=== PATIENT | female | born 1960 | race Caucasian/White ===

== ENCOUNTER 2022-05-26 18:24 | Inpatient (IN) | payer OTHER ==
[~2022-05-26 18:24] MED LIST: Iopamidol-370 76% 500 ML 1 ML ONE
[2022-05-26 20:11] LABS: #Basophils 0.1 thou/uL (0.0-0.2); #Lymphocytes 1.4 thou/uL (1.20-3.40); #Monocytes 0.5 thou/uL (0.11-0.59); #Neutrophils 2.8 thou/uL (1.40-6.50); %Basophils 1.3 % (0.0-1.0); %Eosinophils 0.5 % (0.0-10.0); %Lymphocytes 29.9 % (21.0-51.0); %Neutrophils 58.4 % (42.0-75.0); Hemoglobin 11.4 g/dL (12.0-16.0); INR-International Normal Ratio 2.5; Mean Corpuscular HGB CONC 33.2 g/dL (32.0-36.0); Mean Corpuscular Hemoglobin 35.8 pg (27.0-31.0); Platelet Count 64 10x3/uL (130-400); Prothrombin Time 28.1 sec (12.0-14.7); Red Blood Cell (RBC) Count 3.19 mill/uL (4.20-5.40); White Blood Cell (WBC) Count 4.8 10x3/uL (4.8-10.8)
[2022-05-26 20:17] LABS: ALT (SGPT) 23 U/L (8-55); AST (SGOT) 71 U/L (5-34); Albumin 2.1 g/dL (3.4-4.8); Alkaline Phosphatase 97 U/L (40-110); Anion Gap 12 mmol/L (10-20); BUN (Urea Nitrogen) 7 mg/dL (9.8-20.1); Bilirubin, Total 15.9 mg/dL (0.2-1.2); Calc. Creatinine Clearance 0 mL/min (70-130); Calcium 8.2 mg/dL (7.8-10.44); Carbon Dioxide 19 mmol/L (23-31); Chloride 103 mmol/L (98-107); Estimated GFR 98; Globulin 3.5 g/dL (2.4-3.5); Glucose 121 mg/dL (80-115); Lipase 97 U/L (8-78); Potassium 3.9 mmol/L (3.5-5.1); Protein, Total 5.6 g/dL (5.8-8.1); Sodium 130 mmol/L (136-145)
[2022-05-27 02:17] LABS: Bilirubin 1+ (Negative); Blood, Urine Negative (Negative); Clarity Clear (Clear); Glucose, Urine (Dipstick) Normal (Negative); Ketone, Urine Negative (Negative); Leukocyte Negative Leu/uL (Negative); Nitrite Negative (Negative); Protein, Urine (Dipstick) Negative (Neg-Trace); Specific Gravity, Urine 1.027 (1.002-1.036); Urobilinogen Normal mg/dL (Less than 2)
[2022-05-27] MEDS ORDERED: Morphine 2 MG/ML VIAL ONE (03:42)
[2022-05-27 04:52] LABS: SARS-CoV-2 NAA Rapid Test Not Detected (NotDetected)
[2022-05-27] MEDS ORDERED: Ondansetron PF 4 MG/2 ML Vial IVP PRN (05:12)
[2022-05-27] MEDS ORDERED: Ondansetron ODT 4 MG TAB PO PRN (05:12)
[2022-05-27] MEDS ORDERED: Phytonadione 10 MG/ML AMP ONE (05:17)
[2022-05-27] MEDS ORDERED: Phytonadione 10 MG/ML AMP IM SCH (05:30)
[2022-05-27 05:37] LABS: #Lymphocytes 1.6 thou/uL (1.20-3.40); #Monocytes 0.5 thou/uL (0.11-0.59); #Neutrophils 2.8 thou/uL (1.40-6.50); %Basophils 0.7 % (0.0-1.0); %Eosinophils 0.3 % (0.0-10.0); %Lymphocytes 33.1 % (21.0-51.0); %Monocytes 9.9 % (0.0-10.0); %Neutrophils 56.1 % (42.0-75.0); Hemoglobin 10.5 g/dL (12.0-16.0); Mean Corpuscular HGB CONC 33.2 g/dL (32.0-36.0); Mean Corpuscular Hemoglobin 35.9 pg (27.0-31.0); Mean Platelet Volume 7.9 fL (7.4-10.4); Platelet Count 51 10x3/uL (130-400); RBC Distribution Width 15.1 % (11.5-14.5); Red Blood Cell (RBC) Count 2.93 mill/uL (4.20-5.40); White Blood Cell (WBC) Count 4.9 10x3/uL (4.8-10.8)
[2022-05-27 05:56] LABS: Anion Gap 7 mmol/L (10-20); BUN (Urea Nitrogen) 7 mg/dL (9.8-20.1); Calc. Creatinine Clearance 0 mL/min (70-130); Calcium 7.9 mg/dL (7.8-10.44); Carbon Dioxide 23 mmol/L (23-31); Chloride 103 mmol/L (98-107); Estimated GFR 99; Glucose 115 mg/dL (80-115); Potassium 3.7 mmol/L (3.5-5.1); Sodium 129 mmol/L (136-145)
[2022-05-27] MEDS ORDERED: Benzonatate 100 MG CAP ONE (06:00)
[2022-05-27] MEDS: Benzonatate 100 MG CAP PO PRN ×2 (06:03→17:58)
[2022-05-27] MEDS ORDERED: HUM PROTHROMBIN CPLX(PCC)4FACT 2,000 UNIT in Admixture Fee 80 EACH IV SCH (06:45)
[2022-05-27 06:57] VITALS: BMI 35.9
[2022-05-27 08:50] LABS: INR-International Normal Ratio 2.7; Prothrombin Time 29.6 sec (12.0-14.7)
[2022-05-27 08:51] LABS: PTT 46.5 sec (22.9-36.1)
[2022-05-27] MEDS ORDERED: Phytonadione 10 MG in Sodium Chloride 0.9% 50 ML IVPB SCH ×2 (10:30→16:30)
[2022-05-27] MEDS ORDERED: Phytonadione 5 MG in Sodium Chloride 0.9% 50 ML IVPB SCH (12:00)
[2022-05-27 15:22] LABS: Hemoglobin 11.1 g/dL (12.0-16.0); Platelet Count 57 10x3/uL (130-400)
[2022-05-27 15:28] LABS: INR-International Normal Ratio 2.5; PTT 44.7 sec (22.9-36.1); Prothrombin Time 28.2 sec (12.0-14.7)
[2022-05-27] MEDS: Sodium Chloride 0.9% 1,000 ML IV SCH ×2 (17:54→20:02)
[2022-05-27] MEDS ORDERED: Fentanyl 100 MCG/2 ML VIAL SLOW IVP PRN (19:28)
[2022-05-28 05:02] LABS: #Lymphocytes 1.5 thou/uL (1.20-3.40); #Monocytes 0.3 thou/uL (0.11-0.59); #Neutrophils 2.6 thou/uL (1.40-6.50); %Basophils 0.6 % (0.0-1.0); %Eosinophils 0.6 % (0.0-10.0); %Lymphocytes 34.4 % (21.0-51.0); %Monocytes 5.8 % (0.0-10.0); %Neutrophils 58.6 % (42.0-75.0); Hemoglobin 8.9 g/dL (12.0-16.0); Mean Corpuscular Hemoglobin 36.6 pg (27.0-31.0); Mean Platelet Volume 8.1 fL (7.4-10.4); Platelet Count 53 10x3/uL (130-400); RBC Distribution Width 15.2 % (11.5-14.5); Red Blood Cell (RBC) Count 2.43 mill/uL (4.20-5.40); White Blood Cell (WBC) Count 4.4 10x3/uL (4.8-10.8)
[2022-05-28 05:07] LABS: INR-International Normal Ratio 2.5; Prothrombin Time 27.7 sec (12.0-14.7)
[2022-05-28 05:19] LABS: Anion Gap 10 mmol/L (10-20); BUN (Urea Nitrogen) 6 mg/dL (9.8-20.1); Calc. Creatinine Clearance 143 mL/min (70-130); Calcium 7.9 mg/dL (7.8-10.44); Carbon Dioxide 21 mmol/L (23-31); Chloride 104 mmol/L (98-107); Estimated GFR 100; Glucose 93 mg/dL (80-115); Potassium 3.7 mmol/L (3.5-5.1); Sodium 131 mmol/L (136-145)
[2022-05-28] MEDS ORDERED: Sodium Bicarbonate 2.5 MEQ/5 ML VIAL ONE (07:30)
[2022-05-28] MEDS ORDERED: Lidocaine 1% PF 5 ML VIAL ONE (07:30)
[2022-05-28] MEDS: Furosemide 40 MG TAB PO SCH (08:35)
[2022-05-28] MEDS: Spironolactone 100 MG TAB PO SCH (08:35)
[2022-05-28 11:02] LABS: RBC Count-Automated (BF) 4313 /cu.mm; WBC/Nucleated-Auto (BF) 676 /cu.mm
[2022-05-28 11:13] LABS: Body Fluid Source Ascites Body Fluid; Clarity Hazy (Clear); Tube # 4
[2022-05-28 11:14] LABS: BF Color Yellow
[2022-05-28 11:37] LABS: Cell Count Non Hematic 72 %; Lymphocytes 28 %
[2022-05-28] MEDS ORDERED: Levothyroxine Sodium 125 MCG TAB PO SCH (11:45)
[2022-05-28 16:07] LABS: #Lymphocytes 1.7 thou/uL (1.20-3.40); #Monocytes 0.6 thou/uL (0.11-0.59); #Neutrophils 2.6 thou/uL (1.40-6.50); %Basophils 0.8 % (0.0-1.0); %Eosinophils 0.5 % (0.0-10.0); %Lymphocytes 33.7 % (21.0-51.0); %Monocytes 12.4 % (0.0-10.0); %Neutrophils 52.5 % (42.0-75.0); Hemoglobin 9.2 g/dL (12.0-16.0); Mean Corpuscular HGB CONC 33.4 g/dL (32.0-36.0); Mean Corpuscular Hemoglobin 36.6 pg (27.0-31.0); Mean Platelet Volume 7.4 fL (7.4-10.4); Platelet Count 51 10x3/uL (130-400); RBC Distribution Width 15.6 % (11.5-14.5)
[2022-05-28] MEDS: Sodium Chloride 0.9% 1,000 ML IV SCH (17:36)
[2022-05-29 01:26] LABS: #Lymphocytes 1.4 thou/uL (1.20-3.40); #Monocytes 0.4 thou/uL (0.11-0.59); #Neutrophils 2.2 thou/uL (1.40-6.50); %Basophils 0.5 % (0.0-1.0); %Eosinophils 0.4 % (0.0-10.0); %Lymphocytes 35.2 % (21.0-51.0); %Monocytes 10.9 % (0.0-10.0); %Neutrophils 53.1 % (42.0-75.0); Hemoglobin 8.7 g/dL (12.0-16.0); Mean Corpuscular HGB CONC 34.8 g/dL (32.0-36.0); Mean Corpuscular Hemoglobin 37.5 pg (27.0-31.0); Mean Platelet Volume 7.6 fL (7.4-10.4); Platelet Count 50 10x3/uL (130-400); RBC Distribution Width 15.4 % (11.5-14.5); Red Blood Cell (RBC) Count 2.31 mill/uL (4.20-5.40); White Blood Cell (WBC) Count 4.1 10x3/uL (4.8-10.8)
[2022-05-29 01:45] LABS: Magnesium 1.5 mg/dL (1.6-2.6)
[2022-05-29 02:05] LABS: ALT (SGPT) 17 U/L (8-55); AST (SGOT) 54 U/L (5-34); Alkaline Phosphatase 91 U/L (40-110); Anion Gap 10 mmol/L (10-20); BUN (Urea Nitrogen) 6 mg/dL (9.8-20.1); Bilirubin, Total 12.7 mg/dL (0.2-1.2); Calc. Creatinine Clearance 131 mL/min (70-130); Calcium 7.6 mg/dL (7.8-10.44); Carbon Dioxide 22 mmol/L (23-31); Chloride 105 mmol/L (98-107); Estimated GFR 98; Globulin 2.7 g/dL (2.4-3.5); Glucose 106 mg/dL (80-115); Potassium 3.2 mmol/L (3.5-5.1); Protein, Total 4.7 g/dL (5.8-8.1); Sodium 134 mmol/L (136-145)
[2022-05-29 02:17] LABS: INR-International Normal Ratio 2.5; Prothrombin Time 28.5 sec (12.0-14.7)
[2022-05-29] MEDS ORDERED: Electrolyte Replacement Protocol 1 EACH FS SCH (03:45)
[2022-05-29] MEDS ORDERED: Potassium Chloride 20 MEQ TAB PO SCH ×2 (03:45→10:00)
[2022-05-29] MEDS ORDERED: Magnesium 2 GM/50 ML(in water) 2 GM in Premix Bag 1 BAG IVPB SCH ×2 (03:45→09:00)
[2022-05-29] MEDS ORDERED: Levothyroxine Sodium 125 MCG TAB PO SCH (06:00)
[2022-05-29 08:44] LABS: Potassium 3.4 mmol/L (3.5-5.1)
[2022-05-29] MEDS: Spironolactone 100 MG TAB PO SCH (08:57)
[2022-05-29] MEDS: Furosemide 40 MG TAB PO SCH (08:57)
[2022-05-29] MEDS ORDERED: Folic Acid 1 MG TAB PO SCH (09:00)
[2022-05-29] MEDS ORDERED: Multivitamin W/ Minerals 1 TAB PO SCH (09:00)
[2022-05-29] MEDS ORDERED: Thiamine 100 MG TAB PO SCH (09:00)
[2022-05-29] MEDS: Sodium Chloride 0.9% 1,000 ML IV SCH (09:03)
[2022-05-29 11:59] VITALS: BP 117/58; TEMP 98.6
[2022-05-29 13:42] LABS: Hemoglobin 9.6 g/dL (12.0-16.0)
== END 2022-05-29 17:29 | disposition home or self-care (01) | DRG 433 ==
LOC: ERS 18:24 → ERHOLD 05-27 04:58 → 2SW 05-27 13:05 → OBSVTOIN 05-29 09:48
PROVIDERS: ADMIT Internal Medicine; ATTEND Internal Medicine
PROC: 30283B1 Transfusion of Nonautologous 4-Factor Prothrombin Complex Concentrate into Vein, Percutaneous Approach (ICD-10-PCS; 2022-05-27)
PROC: 30233K1 Transfusion of Nonautologous Frozen Plasma into Peripheral Vein, Percutaneous Approach (ICD-10-PCS; 2022-05-27)
PROC: 0W9G3ZZ Drainage of Peritoneal Cavity, Percutaneous Approach (ICD-10-PCS; principal; 2022-05-28)
DX: K70.31 Alcoholic cirrhosis of liver with ascites (principal); Z20.822 Contact with and (suspected) exposure to COVID-19; D62 Acute posthemorrhagic anemia; E87.1 Hypo-osmolality and hyponatremia; D68.4 Acquired coagulation factor deficiency; M79.81 Nontraumatic hematoma of soft tissue; E80.6 Other disorders of bilirubin metabolism; D69.59 Other secondary thrombocytopenia; Z88.8 Allergy status to other drugs, medicaments and biological substances; Z79.899 Other long term (current) drug therapy; Z79.890 Hormone replacement therapy; Z98.890 Other specified postprocedural states; Z85.05 Personal history of malignant neoplasm of liver
CPT/HCPCS: 36415; 36430; 49083; 71045; 74177; 76705; 80048; 80053; 81003; 82042; 83605; 83690; 83735; 84157; 85025; 85060; 85610; 85730; 86850; 86900; 86901; 87070; 87205; 89051; 96365; 96372; 96374; 96375; G0378; J2272; J3010; J3430; J3475; J7050; P9059; Q9967; U0002